=== PATIENT | female | born 1995 | race Hispanic/Latino ===

== ENCOUNTER 2021-02-09 16:09 | Emergency (ER) | payer SELFPAY ==
[2021-02-09 16:27] VITALS: BP 116/81; PULSE 89; RESP 16; TEMP 36.8; O2SAT 100
--- NOTE | 2021-02-09 16:49 | ED.URI ---
HPI - URI/Sore Throat General Chief Complaint: Upper Respiratory Infection Stated Complaint: Sore Throat,Headache Time Seen by Provider: 02/09/21 16:55 Source: patient, RN notes reviewed and old records reviewed Mode of arrival: ambulatory Limitations: no limitations History of Present Illness HPI Narrative: 25-year-old female who presents to [facility] with complaints of sore throat, fever,headache, and body aches this morning. Patient states she took at home a rapid Covid test this morning which was negative and also last week she took one prior to visiting with family which was also negative Patient generally looks ill with eye appearing red and glassy looking with sinus drainage and cough also.Patient has been vaccinated for COVID but has not had Booster or influenza test. Patient reports that she took some Mucinex and slept for long interval this morning which helped. Patient reports known exposure at work environment. MD elicited complaint: cough, sore throat, rhinorrhea and nasal congestion Related Data Home Medications Medication Instructions Recorded Confirmed No Home Medications 02/09/21 02/09/21 Allergies Allergy/AdvReac Type Severity Reaction Status Date / Time No Known Allergies Allergy Verified 02/09/21 17:13 Review of Systems Review of Systems: CONSTITUTIONAL: Positive fever, chills, or sweats. EYES: Denies visual changes, redness, or discharge. ENT: Positive rhinorrhea, congestion, sore throat, no otalgia. CARDIOVASCULAR: Denies chest pain, palpitations, or edema. RESPIRATORY: Positive for cough no dyspnea. GASTROINTESTINAL: Denies abdominal pain, nausea, vomiting, or diarrhea. GENITOURINARY: Denies dysuria or hematuria. SKIN: Denies rash or itching. MUSCULOSKELETAL: Denies back pain, joint pain, positive for body aches. NEUROLOGIC: Denies headache, numbness, or weakness. PSYCHIATRIC: Denies anxiety or depression. All systems reviewed & are unremarkable except as noted in HPI and below PMFSH Past Medical History Medical History (Updated 02/09/21 @ 17:52 by Estefani Benton NP) Acne ADHD (attention deficit hyperactivity disorder) Social History Social History (Updated 02/09/21 @ 18:06 by Estefani Benton NP) Smoking status: Never smoker Alcohol intake: current Alcohol use details: social Substance use: never Living arrangements: with family Gender identity (if verbalized by the patient): Female Comments At time of signature, agree with nursing past medical, surgical, social and family history. There is no relevant family history pertinent to the presenting complaint Exam Narrative: GENERAL: Ill-appearing, well-nourished, and in no acute distress. HEAD: Normocephalic, atraumatic. EYES: PERRLA and EOMI.sclera red with glassy look ENT: Nares red with clear rhinorrhea no epistaxis. Mucous membranes moist.TM's normal with good light reflex, throat red with no lesions or exudates, no tonsil enlargement, post nasal drainage NECK: Supple.no lymphadenopathy CHEST: Clear to auscultation. No respiratory distress.no acute cough or dyspnea SAO2 100% on room air HEART: Regular rate and rhythm. No murmur heard. Normal peripheral pulses. ABDOMEN: Soft, nontender, nondistended, normal active bowel sounds. EXTREMITIES: Normal range of motion. No edema. SKIN: Warm, dry, no rash. NEURO: No focal deficits. Alert and oriented x3. Course Course Level of Care: Express Care Visit Vital Signs Vital signs: Vital Signs Temperature 36.8 C 02/09/21 16:27 Pulse Rate 89 02/09/21 16:27 Respiratory Rate 16 02/09/21 16:27 Blood Pressure 116/81 02/09/21 16:27 Pulse Oximetry 100 02/09/21 16:27 Temperature 36.8 C 02/09/21 16:27 Pulse Rate 89 02/09/21 16:27 Respiratory Rate 16 02/09/21 16:27 Blood Pressure 116/81 02/09/21 16:27 Pulse Oximetry 100 02/09/21 16:27 MDM - URI/Sore Throat Differential Diagnosis Differential diagnosis: Likely upper respiratory infecti
[2021-02-10 14:39] LABS: SARS-CoV-2 RNA PCR Negative
== END 2021-02-09 18:17 | disposition home or self-care (01) ==
PROVIDERS: Emergency Provider Registered Nurse
DX: J06.9 Acute upper respiratory infection, unspecified (principal); Z20.822 Contact with and (suspected) exposure to COVID-19
CPT/HCPCS: 87081; 87426; 87804; 87880; 99203; C9803; G0463; U0003; U0005